=== PATIENT | female | born 2000 | race Caucasian/White ===

== ENCOUNTER 2018-12-25 21:13 | Emergency (ER) | payer MEDICAID ==
[~2018-12-25] VITALS: Ht 165.1 cm; Wt 79.0 kg
[2018-12-25 22:22] VITALS: BP 123/68
== END 2018-12-25 22:26 | disposition home or self-care (01) ==
LOC: ER 21:13
DX: B34.9 Viral infection, unspecified (principal); J45.909 Unspecified asthma, uncomplicated
CPT/HCPCS: 99281

== ENCOUNTER 2019-05-04 12:17 | Emergency (ER) | payer MEDICAID ==
[~2019-05-04] VITALS: Ht 165.1 cm; Wt 70.0 kg
[2019-05-04 12:25] VITALS: BP 114/64
--- NOTE | 2019-05-04 12:52 | NUR ---
Shelly jackson in EDM - 05/04/19 at 1254 by JENI Pt has not medical complaints at this time, see evaluation by Provider.
[2019-05-04] MEDS ORDERED: triamcinolone acetonide 40mg/ml inj IM ONE (13:05)
== END 2019-05-04 13:50 | disposition home or self-care (01) ==
LOC: ER 12:17
DX: L23.9 Allergic contact dermatitis, unspecified cause (principal); J45.909 Unspecified asthma, uncomplicated
CPT/HCPCS: 96372; 99283; J3301

== ENCOUNTER 2019-07-21 10:49 | Emergency (ER) | payer MEDICAID ==
[~2019-07-21] VITALS: Ht 162.6 cm; Wt 69.5 kg
[2019-07-21] MEDS ORDERED: ERYT1OIN6 LEFTEYE (11:03)
[2019-07-21 11:12] VITALS: BP 110/80
== END 2019-07-21 11:16 | disposition home or self-care (01) ==
LOC: ER 10:50
DX: H00.014 Hordeolum externum left upper eyelid (principal); J45.909 Unspecified asthma, uncomplicated; Z79.899 Other long term (current) drug therapy
CPT/HCPCS: 99283